=== PATIENT | female | born 1980 | race Two or more races ===

== ENCOUNTER 2021-06-01 06:00 | Day surgery (SDC) | payer OTHER ==
[~2021-06-01 06:00] MED LIST: CLONAZEPAM0.5 MG PO; NORVASC2.5 M1 PO; ZOLOFT100 MG PO
[2021-06-01] MEDS ORDERED: NAPR500T14 PO (11:13)
[2021-06-01] MEDS ORDERED: MORGIDOX100 MG PO (11:13)
== END 2021-06-01 16:20 | disposition home or self-care (01) ==
LOC: CIR.AMB 06:00
PROVIDERS: ATTEND Obstetrics & Gynecology
DX: D25.0 Submucous leiomyoma of uterus (principal)